=== PATIENT | female | born 1950 | race Caucasian/White ===

== ENCOUNTER 2021-05-12 02:49 | Inpatient (IN) ==
[2021-05-12] MEDS ORDERED: NS 0.9% 1000 ml BAG 1,000 ML IV ONE ×2 (02:58→03:00)
[2021-05-12] MEDS ORDERED: Ondansetron 4 mg VIAL 2 MG/ML 2 ml VIAL IV ONE (03:00)
[2021-05-12 03:38] LABS: INR 1.1 (0.86-1.15)
[2021-05-12 03:40] LABS: ABS Basophils 0.1 10^3/ul (0-0.2); ABS Lymphocytes 2.2 10^3/ul (1.0-4.8); ABS Neutrophils 13.6 10^3/ul (1.5-7.7); ABS Nucleated RBC 0.1 10^3/ul; Eosinophil % 0.1 %; Hematocrit 62 % (35-47); Hemoglobin 20.8 g/dL (12.0-16.0); Lymphocyte % 13.1 %; Mean Corpuscular HGB Conc 34 g/dL (31-36); Mean Corpuscular Hemoglobin 29 pg (27-31); Mean Corpuscular Volume 87 fL (80-97); Mean Platelet Volume 8.8 fL (7.4-10.4); Nucleated Red Blood Cells % 0.8; Platelet Count 231 10^3/uL (150-450); Red Blood Count 7.06 10^6 /uL (3.70-4.87); Red Cell Distribution Width 13 % (10-15); White Blood Count 16.9 10^3/uL (3.5-10.8)
[2021-05-12 03:42] LABS: Ammonia 38 mcmol/L (16-53)
[2021-05-12 03:48] LABS: ALT 27 U/L (7-52); AST 32 U/L (13-39); Albumin 4.7 g/dL (3.2-5.2); Albumin/Globulin Ratio 1.3 (1-3); Alkaline Phosphatase 96 U/L (35-149); Amylase 39 U/L (29-103); Anion Gap 14 mmol/L (2-11); Blood Urea Nitrogen 42 mg/dL (6-24); C Reactive Protein 2.38 mg/L (<8.01); CO2 Carbon Dioxide 25 mmol/L (22-32); Calcium 10.1 mg/dL (8.6-10.3); Chloride 98 mmol/L (101-111); Globulin 3.6 g/dL (2-4); Glucose 155 mg/dL (70-100); Lipase 35 U/L (11.0-82.0); Magnesium 2.3 mg/dL (1.9-2.7); Potassium 3.8 mmol/L (3.5-5.0); Sodium 137 mmol/L (135-145); Total Protein 8.3 g/dL (6.4-8.9); eGFR CKD-EPI 30.6 (>60)
[2021-05-12 04:25] LABS: Rapid COVID-19 Molecular Undetected (Undetected)
[2021-05-12 04:50] LABS: Troponin I 0.05 ng/mL (<0.03)
[2021-05-12 04:52] LABS: BNP 174 pg/mL (<=100)
[2021-05-12 06:23] LABS: Urine Appearance Turbid; Urine Bilirubin Negative (Negative); Urine Blood 1+ (Negative); Urine Color Amber; Urine Glucose 1+(50 mg/dL) (Negative); Urine Ketones Trace (Negative); Urine Nitrite Negative (Negative); Urine Protein 2+(100 mg/dL) (Negative); Urine Specific Gravity 1.019 (1.002-1.030); Urine Urobilinogen Positive (Negative)
[2021-05-12 06:29] LABS: Hematocrit 56 % (35-47); Hemoglobin 18.7 g/dL (12.0-16.0)
[2021-05-12 06:31] LABS: Urine Bacteria 2+ (Absent); Urine Red Blood Cell Trace(0-2/hpf) (Absent); Urine Squamous Epithelial Cell Present (Absent); Urine White Blood Cell Trace(0-5/hpf) (Absent)
[2021-05-12 06:45] LABS: Anion Gap 9 mmol/L (2-11); Blood Urea Nitrogen 40 mg/dL (6-24); CO2 Carbon Dioxide 27 mmol/L (22-32); Calcium 8.6 mg/dL (8.6-10.3); Chloride 103 mmol/L (101-111); Glucose 103 mg/dL (70-100); Potassium 3.9 mmol/L (3.5-5.0); Sodium 139 mmol/L (135-145); eGFR CKD-EPI 31.7 (>60)
[2021-05-12 06:51] LABS: Troponin I 0.05 ng/mL (<0.03)
[2021-05-12] MEDS ORDERED: Ondansetron 4 mg VIAL 2 MG/ML 2 ml VIAL IV PRN (09:26)
[2021-05-12] MEDS ORDERED: Enoxaparin 40 MG/0.4 ML SYR SUBCUT SCH (10:00)
[2021-05-12] MEDS ORDERED: Lactated Ringers 1000 ml BAG 1,000 ML IV SCH (10:00)
[2021-05-12] MEDS: Enoxaparin 30 MG/0.3 ML SYR SUBCUT SCH (10:45)
[2021-05-12] MEDS: Prochlorperazine 5 mg/ml 2 ml VIAL (10 mg) IV PRN (13:22)
[2021-05-12] MEDS: Nicotine GUM 4MG FRUIT FLAVOR PO PRN (13:22)
[2021-05-12 15:32] LABS: Albumin 3.5 g/dL (3.2-5.2); Albumin/Globulin Ratio 1.5 (1-3); Calcium 8.3 mg/dL (8.6-10.3); Globulin 2.3 g/dL (2-4); Potassium 3.8 mmol/L (3.5-5.0); Total Bilirubin 0.6 mg/dL (0.2-1.0); Total Protein 5.8 g/dL (6.4-8.9); eGFR CKD-EPI 41.8 (>60)
[2021-05-12] MEDS: PAXIL PO SCH (16:01)
[2021-05-12] MEDS: SPIRIVA Respimat (tiotropium) 2.5 mcg/inh Inhaler INH SCH (19:12)
[2021-05-12] MEDS: Isosorbide Mononit ER 30mg TAB PO SCH (20:10)
[2021-05-13] MEDS: Prochlorperazine 5 mg/ml 2 ml VIAL (10 mg) IV PRN ×2 (00:40→09:22)
[2021-05-13] MEDS ORDERED: Trimethobenzamide *IM* 100 mg/ml 2 ml VIAL (200 mg) IM ONE (04:25)
[2021-05-13 07:42] LABS: ABS Basophils 0.1 10^3/ul (0-0.2); ABS Eosinophils 0.1 10^3/ul (0-0.6); ABS Lymphocytes 3.2 10^3/ul (1.0-4.8); ABS Monocytes 0.9 10^3/ul (0-0.8); ABS Neutrophils 5.4 10^3/ul (1.5-7.7); Eosinophil % 0.8 %; Hematocrit 46 % (35-47); Hemoglobin 15.9 g/dL (12.0-16.0); Lymphocyte % 33.4 %; Mean Corpuscular HGB Conc 35 g/dL (31-36); Mean Corpuscular Hemoglobin 30 pg (27-31); Mean Corpuscular Volume 87 fL (80-97); Mean Platelet Volume 8.6 fL (7.4-10.4); Platelet Count 160 10^3/uL (150-450); Red Blood Count 5.28 10^6 /uL (3.70-4.87); Red Cell Distribution Width 13 % (10-15); White Blood Count 9.7 10^3/uL (3.5-10.8)
[2021-05-13 07:53] LABS: Calcium 8.3 mg/dL (8.6-10.3); Potassium 3.9 mmol/L (3.5-5.0); eGFR CKD-EPI 52.8 (>60)
[2021-05-13] MEDS: PAXIL PO SCH (08:53)
[2021-05-13] MEDS: Enoxaparin 30 MG/0.3 ML SYR SUBCUT SCH (08:53)
[2021-05-13] MEDS: Nicotine GUM 4MG FRUIT FLAVOR PO PRN (08:53)
[2021-05-13] MEDS ORDERED: Ondansetron ODT 4 mg TAB 4 MG TAB SL PRN (16:02)
[2021-05-13] MEDS: Isosorbide Mononit ER 30mg TAB PO SCH (19:44)
[2021-05-13] MEDS: SPIRIVA Respimat (tiotropium) 2.5 mcg/inh Inhaler INH SCH (20:05)
[2021-05-14 06:08] LABS: Calcium 8.4 mg/dL (8.6-10.3); Potassium 3.7 mmol/L (3.5-5.0); eGFR CKD-EPI 58.5 (>60)
[2021-05-14] MEDS: Nicotine PATCH 21 MG/24 HR PATCH TRANSDERM SCH (09:41)
[2021-05-14] MEDS: cefTRIAXone 1 gm/50 mL NS BAG 1 GM/50 ML BAG IVPB SCH (09:42)
[2021-05-14] MEDS: PAXIL PO SCH (09:43)
[2021-05-14] MEDS: Enoxaparin 30 MG/0.3 ML SYR SUBCUT SCH (09:43)
[2021-05-14] MEDS: Albuterol HFA INHALER 8 gm MDI INH PRN ×2 (11:12→18:41)
[2021-05-14] MEDS: Mometasone/Formoter 100/5 MDI INH SCH (18:40)
[2021-05-14] MEDS: SPIRIVA Respimat (tiotropium) 2.5 mcg/inh Inhaler INH SCH (19:05)
[2021-05-14] MEDS: Isosorbide Mononit ER 30mg TAB PO SCH (19:42)
[2021-05-15] MEDS: Nicotine GUM 4MG FRUIT FLAVOR PO PRN ×2 (00:43→10:07)
[2021-05-15] MEDS ORDERED: Iodixanol (CONTRAST) 320 MG/ML 100 ML SDV IV ONE (03:41)
[2021-05-15] MEDS: Mometasone/Formoter 100/5 MDI INH SCH (07:07)
[2021-05-15] MEDS: Albuterol HFA INHALER 8 gm MDI INH PRN (07:08)
[2021-05-15] MEDS: Nicotine PATCH 21 MG/24 HR PATCH TRANSDERM SCH (08:01)
[2021-05-15] MEDS: Enoxaparin 30 MG/0.3 ML SYR SUBCUT SCH (10:07)
[2021-05-15] MEDS: cefTRIAXone 1 gm/50 mL NS BAG 1 GM/50 ML BAG IVPB SCH (10:07)
[2021-05-15] MEDS: PAXIL PO SCH (10:07)
[2021-05-15 10:36] LABS: ABS Monocytes 0.1 10^3/ul (0-0.8); ABS Neutrophils 6.2 10^3/ul (1.5-7.7); Eosinophil % 0.2 %; Hematocrit 45 % (35-47); Hemoglobin 15.4 g/dL (12.0-16.0); Lymphocyte % 23.7 %; Mean Corpuscular HGB Conc 34 g/dL (31-36); Mean Corpuscular Hemoglobin 30 pg (27-31); Mean Corpuscular Volume 87 fL (80-97); Mean Platelet Volume 8.7 fL (7.4-10.4); Nucleated Red Blood Cells % 0.2; Platelet Count 160 10^3/uL (150-450); Red Blood Count 5.21 10^6 /uL (3.70-4.87); Red Cell Distribution Width 13 % (10-15); White Blood Count 8.4 10^3/uL (3.5-10.8)
[2021-05-15 10:53] LABS: Potassium 4.4 mmol/L (3.5-5.0); eGFR CKD-EPI 60.6 (>60)
[2021-05-15 12:07] VITALS: BP 149/76
[2021-05-16] MEDS ORDERED: Scopolamine PATCH Remove NOTE PATCH OFF SCH (09:00)
== END 2021-05-15 14:07 | disposition home or self-care (01) | DRG 865 ==
LOC: EDHOLD 02:49 → ED 02:49 → EDHOLD 11:31 → MED 12:01
PROVIDERS: ADMIT Internal Medicine; ATTEND Internal Medicine

== ENCOUNTER 2021-10-09 13:46 | Inpatient (IN) ==
[2021-10-09] MEDS ORDERED: NS 0.9% 1000 ml BAG 1,000 ML IV ONE ×3 (13:54→14:47)
[2021-10-09] MEDS ORDERED: Ondansetron 4 mg VIAL 2 MG/ML 2 ml VIAL ONE (14:15)
[2021-10-09] MEDS ORDERED: Ondansetron 4 mg VIAL 2 MG/ML 2 ml VIAL IV ONE (14:16)
[2021-10-09 14:22] LABS: ABS Basophils 0.1 10^3/ul (0-0.2); ABS Eosinophils 0.1 10^3/ul (0-0.6); ABS Lymphocytes 3.2 10^3/ul (1.0-4.8); ABS Monocytes 1.1 10^3/ul (0-0.8); ABS Neutrophils 7.7 10^3/ul (1.5-7.7); ABS Nucleated RBC 0.1 10^3/ul; Eosinophil % 0.6 %; Hematocrit 51 % (35-47); Hemoglobin 17.1 g/dL (12.0-16.0); Lymphocyte % 26.5 %; Mean Corpuscular HGB Conc 34 g/dL (31-36); Mean Corpuscular Hemoglobin 29 pg (27-31); Mean Corpuscular Volume 86 fL (80-97); Mean Platelet Volume 8.4 fL (7.4-10.4); Nucleated Red Blood Cells % 0.4; Platelet Count 254 10^3/uL (150-450); Red Blood Count 5.91 10^6 /uL (3.70-4.87); Red Cell Distribution Width 13 % (10-15); White Blood Count 12.2 10^3/uL (3.5-10.8)
[2021-10-09 14:27] LABS: INR 1.07 (0.86-1.15)
[2021-10-09] MEDS ORDERED: Piperacillin/Tazobac ADVAN 3.375 GM in NS 0.9% 100 ml BAG 100 ML IV ONE ×2 (14:46→16:04)
[2021-10-09] MEDS ORDERED: Vancomycin 1,250 MG in NS 0.9% 250 ml 250 ML IVPB SCH (15:00)
[2021-10-09 15:13] LABS: Albumin 3.5 g/dL (3.2-5.2); Calcium 8.7 mg/dL (8.6-10.3); Magnesium 1.8 mg/dL (1.9-2.7); Potassium 3.2 mmol/L (3.5-5.0); Total Bilirubin 0.8 mg/dL (0.2-1.0)
[2021-10-09] MEDS ORDERED: KCL 10 MEQ/50 ML IVPREMIX 10 MEQ/50 ML BAG IV ONE (15:14)
[2021-10-09] MEDS ORDERED: Magnesium Sulfate 2 gm BAG 2 GM/50 ML BAG IVPB ONE (15:14)
[2021-10-09 15:19] LABS: Albumin/Globulin Ratio 1.3 (1-3); C Reactive Protein 4.88 mg/L (<8.01); Globulin 2.7 g/dL (2-4); Total Protein 6.2 g/dL (6.4-8.9); eGFR CKD-EPI 38.1 (>60)
[2021-10-09 15:30] LABS: TSH Ultra Thyroid Stim Horm 2.48 mcIU/mL (0.34-5.60)
[2021-10-09] MEDS ORDERED: Prochlorperazine 5 mg/ml 2 ml VIAL (10 mg) IV ONE (15:54)
[2021-10-09] MEDS ORDERED: Ondansetron 4 mg VIAL 2 MG/ML 2 ml VIAL IV PRN (15:57)
[2021-10-09] MEDS ORDERED: Acetaminophen IV 1 GM/100ML 100 ML IV PRN (15:57)
[2021-10-09] MEDS ORDERED: Albuterol 2.5mg/3 ml (0.083%) NEB.SOLN INH PRN (15:57)
[2021-10-09] MEDS ORDERED: Heparin DRIP 25,000 UNITS BAG 25,000 UNITS/500 ML BAG IV SCH (16:00)
[2021-10-09] MEDS ORDERED: Heparin 5000 UNITS/ML 1 mL VIAL IV SCH (16:00)
[2021-10-09 16:04] LABS: High Sensitivity Troponin 1 Hr 219 pg/mL (<15)
[2021-10-09] MEDS ORDERED: Vancomycin 1,750 MG in NS 0.9% 500 ml BAG 500 ML IVPB ONE (16:05)
[2021-10-09] MEDS: Albuterol/Ipratropium NEB.SOL (2.5/0.5 MG) 3 ML NEB.SOLN INH SCH ×3 (16:07→23:00)
[2021-10-09] MEDS ORDERED: Zosyn per Pharmacy NOTE FOLLOW UP SCH (17:00)
[2021-10-09] MEDS: Lactated Ringers 1000 ml BAG 1,000 ML IV SCH (17:54)
[2021-10-09] MEDS: KCL 20 MEQ/100 ML IVPREMIX 20 MEQ/100 ML BAG IV SCH ×2 (18:19→20:41)
[2021-10-09] MEDS: Mometasone/Formoter 200/5 MDI INH SCH (19:06)
[2021-10-09] MEDS: ZOSYN 3.375 GM Q8H per EXTENDED INFUSION IV SCH (20:18)
[2021-10-10 01:28] LABS: Urine Creatinine Concentration 54.07 mg/dL; Urine Sodium Concentration < 18 mmol/L
[2021-10-10] MEDS: Lactated Ringers 1000 ml BAG 1,000 ML IV SCH (02:04)
[2021-10-10] MEDS: Albuterol/Ipratropium NEB.SOL (2.5/0.5 MG) 3 ML NEB.SOLN INH SCH ×3 (03:07→13:46)
[2021-10-10] MEDS: ZOSYN 3.375 GM Q8H per EXTENDED INFUSION IV SCH ×3 (04:42→20:02)
[2021-10-10 05:58] LABS: ABS Basophils 0.1 10^3/ul (0-0.2); ABS Eosinophils 0.2 10^3/ul (0-0.6); ABS Lymphocytes 4.9 10^3/ul (1.0-4.8); ABS Neutrophils 3.6 10^3/ul (1.5-7.7); Eosinophil % 2.2 %; Hematocrit 42 % (35-47); Lymphocyte % 49.5 %; Mean Corpuscular HGB Conc 33 g/dL (31-36); Mean Corpuscular Hemoglobin 29 pg (27-31); Mean Corpuscular Volume 87 fL (80-97); Mean Platelet Volume 8.2 fL (7.4-10.4); Nucleated Red Blood Cells % 0.1; Platelet Count 178 10^3/uL (150-450); Red Blood Count 4.82 10^6 /uL (3.70-4.87); Red Cell Distribution Width 13 % (10-15); White Blood Count 9.8 10^3/uL (3.5-10.8)
[2021-10-10 06:34] LABS: Calcium 7.3 mg/dL (8.6-10.3); Magnesium 1.9 mg/dL (1.9-2.7); Potassium 3.6 mmol/L (3.5-5.0); eGFR CKD-EPI 50.3 (>60)
[2021-10-10 06:48] LABS: Urine Appearance Cloudy; Urine Bacteria 1+ (Absent); Urine Bilirubin Negative (Negative); Urine Blood 1+ (Negative); Urine Color Yellow; Urine Glucose Negative (Negative); Urine Ketones Negative (Negative); Urine Nitrite Negative (Negative); Urine Protein Negative (Negative); Urine Red Blood Cell Trace(0-2/hpf) (Absent); Urine Specific Gravity 1.006 (1.002-1.030); Urine Squamous Epithelial Cell Present (Absent); Urine Urobilinogen Negative (Negative); Urine White Blood Cell 3+(>20/hpf) (Absent)
[2021-10-10] MEDS ORDERED: Furosemide 40 mg/4 ml IV VIAL IV SLOW PU ONE (08:00)
[2021-10-10] MEDS: Mometasone/Formoter 200/5 MDI INH SCH ×2 (08:14→18:25)
[2021-10-10] MEDS ORDERED: Perflutren Lipid Microsphere 3 ML VIAL ONE (09:08)
[2021-10-10] MEDS: Famotidine IV 10 MG/ML 2 ml VIAL (20 mg) IV SLOW PU SCH (10:48)
[2021-10-10] MEDS ORDERED: Famotidine IV 10 MG/ML 2 ml VIAL (20 mg) IV SLOW PU SCH (11:00)
[2021-10-10] MEDS ORDERED: CALCIUM GLUCONATE 1GM/50ML NS 1 GM/50 ML BAG IV ONE (11:55)
[2021-10-10] MEDS ORDERED: Albuterol/Ipratropium NEB.SOL (2.5/0.5 MG) 3 ML NEB.SOLN INH PRN (12:12)
[2021-10-10] MEDS: Albuterol HFA INHALER 8 gm MDI INH SCH ×2 (13:39→18:25)
[2021-10-10] MEDS: Nicotine PATCH 21 MG/24 HR PATCH TRANSDERM SCH (23:45)
[2021-10-11] MEDS: Albuterol HFA INHALER 8 gm MDI INH SCH ×5 (02:42→19:29)
[2021-10-11] MEDS: Nicotine PATCH 21 MG/24 HR PATCH TRANSDERM SCH (03:59)
[2021-10-11] MEDS: ZOSYN 3.375 GM Q8H per EXTENDED INFUSION IV SCH ×3 (04:00→20:57)
[2021-10-11] MEDS: Mometasone/Formoter 200/5 MDI INH SCH ×2 (07:15→19:28)
[2021-10-11] MEDS: Famotidine IV 10 MG/ML 2 ml VIAL (20 mg) IV SLOW PU SCH (07:49)
[2021-10-11 08:48] LABS: ABS Basophils 0.1 10^3/ul (0-0.2); ABS Eosinophils 0.3 10^3/ul (0-0.6); ABS Monocytes 0.7 10^3/ul (0-0.8); ABS Neutrophils 3.1 10^3/ul (1.5-7.7); Eosinophil % 4.7 %; Hematocrit 39 % (35-47); Hemoglobin 12.8 g/dL (12.0-16.0); Lymphocyte % 32.9 %; Mean Corpuscular HGB Conc 33 g/dL (31-36); Mean Corpuscular Hemoglobin 29 pg (27-31); Mean Corpuscular Volume 88 fL (80-97); Mean Platelet Volume 8.3 fL (7.4-10.4); Nucleated Red Blood Cells % 0.1; Platelet Count 143 10^3/uL (150-450); Red Cell Distribution Width 14 % (10-15)
[2021-10-11 09:20] LABS: Calcium 8.1 mg/dL (8.6-10.3); Magnesium 1.5 mg/dL (1.9-2.7); eGFR CKD-EPI 43.4 (>60)
[2021-10-11] MEDS ORDERED: Magnesium Sulfate 2 gm BAG 2 GM/50 ML BAG IVPB ONE (12:52)
[2021-10-11] MEDS ORDERED: Furosemide 40 mg/4 ml IV VIAL IV SLOW PU ONE (12:53)
[2021-10-12] MEDS: Albuterol HFA INHALER 8 gm MDI INH SCH ×4 (03:12→19:02)
[2021-10-12] MEDS: ZOSYN 3.375 GM Q8H per EXTENDED INFUSION IV SCH ×3 (03:38→22:54)
[2021-10-12 05:52] LABS: ABS Eosinophils 0.4 10^3/ul (0-0.6); ABS Lymphocytes 2.1 10^3/ul (1.0-4.8); ABS Monocytes 0.8 10^3/ul (0-0.8); ABS Neutrophils 2.9 10^3/ul (1.5-7.7); Eosinophil % 6.8 %; Hematocrit 37 % (35-47); Hemoglobin 12.7 g/dL (12.0-16.0); Lymphocyte % 34.1 %; Mean Corpuscular HGB Conc 34 g/dL (31-36); Mean Corpuscular Hemoglobin 30 pg (27-31); Mean Corpuscular Volume 87 fL (80-97); Mean Platelet Volume 8.9 fL (7.4-10.4); Nucleated Red Blood Cells % 0.1; Platelet Count 142 10^3/uL (150-450); Red Blood Count 4.28 10^6 /uL (3.70-4.87); Red Cell Distribution Width 13 % (10-15); White Blood Count 6.2 10^3/uL (3.5-10.8)
[2021-10-12 06:09] LABS: Calcium 8.1 mg/dL (8.6-10.3); Magnesium 1.5 mg/dL (1.9-2.7); Potassium 3.2 mmol/L (3.5-5.0); eGFR CKD-EPI 53.6 (>60)
[2021-10-12] MEDS: Mometasone/Formoter 200/5 MDI INH SCH ×2 (07:01→19:02)
[2021-10-12] MEDS ORDERED: Potassium Chlor 20 meq TAB.ER PO ONE (07:18)
[2021-10-12] MEDS ORDERED: KCL 20 MEQ/100 ML IVPREMIX 20 MEQ/100 ML BAG IV ONE (07:18)
[2021-10-12] MEDS: Magnesium Sulfate 2 gm BAG 2 GM/50 ML BAG IVPB SCH ×2 (08:22→20:45)
[2021-10-12] MEDS: Famotidine IV 10 MG/ML 2 ml VIAL (20 mg) IV SLOW PU SCH (08:32)
[2021-10-12] MEDS: Nicotine PATCH 21 MG/24 HR PATCH TRANSDERM SCH (08:34)
[2021-10-12] MEDS ORDERED: Nicotine GUM 4MG FRUIT FLAVOR PO PRN (20:27)
[2021-10-13] MEDS: Albuterol HFA INHALER 8 gm MDI INH SCH ×2 (01:05→07:07)
[2021-10-13] MEDS: ZOSYN 3.375 GM Q8H per EXTENDED INFUSION IV SCH (04:30)
[2021-10-13] MEDS: Mometasone/Formoter 200/5 MDI INH SCH (07:07)
[2021-10-13 07:08] LABS: Calcium 8.3 mg/dL (8.6-10.3); Potassium 4.6 mmol/L (3.5-5.0); eGFR CKD-EPI 54.8 (>60)
[2021-10-13 07:21] VITALS: BP 147/67
[2021-10-13] MEDS: Nicotine PATCH 21 MG/24 HR PATCH TRANSDERM SCH (07:41)
[2021-10-13] MEDS: Famotidine IV 10 MG/ML 2 ml VIAL (20 mg) IV SLOW PU SCH (07:41)
== END 2021-10-13 14:30 | disposition home or self-care (01) | DRG 871 ==
LOC: ED 13:46 → EDHOLD 15:54 → ICU 16:54 → MED 10-10 21:12
PROVIDERS: ADMIT Internal Medicine; ATTEND Internal Medicine

== ENCOUNTER 2022-03-04 11:48 | Observation (INO) ==
[2022-03-04] MEDS ORDERED: Levalbuterol 1.25MG/0.5ML NEB.SOL INH ONE ×2 (12:34→12:35)
[2022-03-04] MEDS ORDERED: methylPREDNISolone SOD SUCC 125 mg 2 ML VIAL IV ONE (12:35)
[2022-03-04 12:51] LABS: ABS Basophils 0.1 10^3/ul (0-0.2); ABS Eosinophils 0.2 10^3/ul (0-0.6); ABS Lymphocytes 2.8 10^3/ul (1.0-4.8); ABS Monocytes 0.7 10^3/ul (0-0.8); ABS Neutrophils 5.3 10^3/ul (1.5-7.7); Hematocrit 47 % (35-47); Hemoglobin 15.5 g/dL (12.0-16.0); Lymphocyte % 30.7 %; Mean Corpuscular HGB Conc 33 g/dL (31-36); Mean Corpuscular Hemoglobin 29 pg (27-31); Mean Corpuscular Volume 88 fL (80-97); Mean Platelet Volume 8.5 fL (7.4-10.4); Nucleated Red Blood Cells % 0.1; Platelet Count 189 10^3/uL (150-450); Red Blood Count 5.33 10^6 /uL (3.70-4.87); Red Cell Distribution Width 14 % (10-15); White Blood Count 9.1 10^3/uL (3.5-10.8)
[2022-03-04] MEDS ORDERED: Magnesium Sulfate 2 gm BAG 2 GM/50 ML BAG IVPB ONE (13:33)
[2022-03-04] MEDS ORDERED: Nicotine PATCH 14 MG/24 HR PATCH TRANSDERM ONE (13:43)
[2022-03-04 13:51] LABS: Albumin 4.1 g/dL (3.2-5.2); Albumin/Globulin Ratio 1.6 (1-3); Calcium 9.2 mg/dL (8.6-10.3); Globulin 2.6 g/dL (2-4); Magnesium 1.9 mg/dL (1.9-2.7); Potassium 4.5 mmol/L (3.5-5.0); Total Bilirubin 0.5 mg/dL (0.2-1.0); Total Protein 6.7 g/dL (6.4-8.9); eGFR CKD-EPI 57.4 (>60)
[2022-03-04 14:19] LABS: High Sensitivity Troponin 1 Hr 9 pg/mL (<15)
[2022-03-04] MEDS ORDERED: Albuterol/Ipratropium NEB.SOL (2.5/0.5 MG) 3 ML NEB.SOLN INH ONE (14:59)
[2022-03-04] MEDS ORDERED: Magnesium Hydroxide LIQ 30 ML UDC PO PRN (17:03)
[2022-03-04] MEDS ORDERED: Ondansetron 4 mg VIAL 2 MG/ML 2 ml VIAL IV PRN (17:03)
[2022-03-04] MEDS ORDERED: Albuterol 2.5mg/3 ml (0.083%) NEB.SOLN INH PRN (17:08)
[2022-03-04] MEDS ORDERED: Nicotine GUM 4MG FRUIT FLAVOR PO PRN (17:24)
[2022-03-04] MEDS: Nicotine PATCH 21 MG/24 HR PATCH TRANSDERM SCH (18:25)
[2022-03-04] MEDS: Albuterol/Ipratropium NEB.SOL (2.5/0.5 MG) 3 ML NEB.SOLN INH SCH (18:32)
[2022-03-04] MEDS: Mometasone/Formoter 100/5 MDI INH SCH (18:52)
[2022-03-04] MEDS ORDERED: SPIRIVA Respimat (tiotropium) 2.5 mcg/inh Inhaler INH SCH (23:00)
[2022-03-04] MEDS: Ofloxacin 0.3% (Ear Drop) BTL LEFT EAR SCH (23:23)
[2022-03-05 01:37] LABS: Urine Appearance Cloudy; Urine Bilirubin Negative (Negative); Urine Blood 1+ (Negative); Urine Color Yellow; Urine Glucose Negative (Negative); Urine Ketones Negative (Negative); Urine Nitrite Negative (Negative); Urine Protein Negative (Negative); Urine Urobilinogen Negative (Negative)
[2022-03-05 01:48] LABS: Urine Bacteria 1+ (Absent); Urine Red Blood Cell Trace(0-2/hpf) (Absent); Urine Squamous Epithelial Cell Present (Absent); Urine White Blood Cell 3+(>20/hpf) (Absent)
[2022-03-05 07:34] LABS: ABS Lymphocytes 2.7 10^3/ul (1.0-4.8); ABS Monocytes 0.6 10^3/ul (0-0.8); ABS Neutrophils 7.5 10^3/ul (1.5-7.7); Hematocrit 44 % (35-47); Hemoglobin 14.8 g/dL (12.0-16.0); Lymphocyte % 25.1 %; Mean Corpuscular HGB Conc 33 g/dL (31-36); Mean Corpuscular Hemoglobin 29 pg (27-31); Mean Corpuscular Volume 87 fL (80-97); Mean Platelet Volume 8.7 fL (7.4-10.4); Nucleated Red Blood Cells % 0.1; Platelet Count 203 10^3/uL (150-450); Red Blood Count 5.08 10^6 /uL (3.70-4.87); Red Cell Distribution Width 14 % (10-15); White Blood Count 10.8 10^3/uL (3.5-10.8)
[2022-03-05] MEDS: Albuterol/Ipratropium NEB.SOL (2.5/0.5 MG) 3 ML NEB.SOLN INH SCH ×2 (07:38→12:54)
[2022-03-05 07:55] LABS: Calcium 9.4 mg/dL (8.6-10.3); Potassium 4.8 mmol/L (3.5-5.0); eGFR CKD-EPI 45.5 (>60)
[2022-03-05] MEDS: Nicotine PATCH 21 MG/24 HR PATCH TRANSDERM SCH (08:03)
[2022-03-05] MEDS: Ofloxacin 0.3% (Ear Drop) BTL LEFT EAR SCH (08:05)
[2022-03-05] MEDS: Mometasone/Formoter 100/5 MDI INH SCH (08:07)
[2022-03-05 11:55] VITALS: BP 136/76
== END 2022-03-05 15:35 | disposition home or self-care (01) ==
LOC: ED 11:48 → EDHOLD 11:48 → SUATTDRO 17:03 → EDHOLD 03-05 15:34
PROVIDERS: ADMIT Internal Medicine; ATTEND Internal Medicine